=== PATIENT | female | born 1940 ===

== ENCOUNTER 2021-12-28 08:47 | Inpatient (IN) | payer OTHER ==
[~2021-12-28] VITALS: Ht 157.5 cm; Wt 57.2 kg
[2021-12-28] MEDS ORDERED: ZETIA10 MG PO (13:22)
[2021-12-28] MEDS ORDERED: CLONAZEPAM0.5 MG PO (13:22)
[2021-12-28] MEDS ORDERED: RESTORIL30 M1 PO (13:22)
[2021-12-28] MEDS ORDERED: CALCIU PO (13:23)
[2021-12-28] MEDS ORDERED: [UNRECOGNIZED DRUG - OTHER] PO (13:23)
[2022-01-02] MEDS ORDERED: PENTOXIFYLLINE400 MG (09:10)
[2022-01-02] MEDS ORDERED: VALSARTAN-HCTZ1 EACH (09:10)
[2022-01-02] MEDS ORDERED: GLIMEPIRIDE1 M1 (09:10)
[2022-01-02] MEDS ORDERED: DICYCLOMINE HCL20 MG (09:11)
[2022-01-02] MEDS ORDERED: CVS CALCIUM 601 EAC5 (09:11)
== END 2022-01-05 16:04 | disposition home or self-care (01) | DRG 330 ==
LOC: O/R 01-02 05:30 → SURH 01-02 05:30 → SURG 01-02 07:00 → SURH 01-02 14:07
PROVIDERS: ADMIT Surgery; ATTEND Surgery
PROC: 0DBP4ZZ Excision of Rectum, Percutaneous Endoscopic Approach (ICD-10-PCS; 2022-01-02)
PROC: 07BC4ZZ Excision of Pelvis Lymphatic, Percutaneous Endoscopic Approach (ICD-10-PCS; 2022-01-02)
PROC: 0DTN4ZZ Resection of Sigmoid Colon, Percutaneous Endoscopic Approach (ICD-10-PCS; principal; 2022-01-02 07:00)
DX: C18.7 Malignant neoplasm of sigmoid colon (principal); K62.5 Hemorrhage of anus and rectum; R59.0 Localized enlarged lymph nodes; K59.09 Other constipation; Z20.822 Contact with and (suspected) exposure to COVID-19